=== PATIENT | female | born 2000 | race Hispanic/Latino ===

== ENCOUNTER 2024-10-02 18:42 | Emergency (ER) | payer BC, MEDICAID ==
[~2024-10-02] VITALS: Ht 157.5 cm; Wt 113.5 kg
[2024-10-02 18:52] VITALS: BP 117/86; PULSE 74; RESP 16; TEMP 98.2; O2SAT 99
--- NOTE | 2024-10-02 20:46 | NUR ---
PT STATES SHE IS POSITIVE SHE IS NOT
--- NOTE | 2024-10-02 20:46 | NUR ---
PT STATES SHE IS NOT
--- NOTE | 2024-10-02 21:25 | HMCIMG ---
RIGHT ANKLE RADIOGRAPHS - 3 VIEWS INDICATION: Pain COMPARISON: None FINDINGS: AP, lateral, and oblique views. Examination provided for interpretation at 9:21 PM on 10/02/2024. No acute fracture or subluxation identified. Moderate dorsal lateral right ankle soft tissue swelling. The talar dome is intact. Ankle mortise and tibial plafond are well maintained. No significant joint effusion is present. 7 mm spur arising posteriorly off the posterior talar margin on the lateral view is of no clinical significance. IMPRESSION: Examination provided for interpretation at 9:21 PM on 10/02/2024. Moderate dorsal lateral right ankle soft tissue swelling without evidence for fracture or dislocation.
--- NOTE | 2024-10-02 21:34 | ERN ---
General Chief Complaint: Lower Extremity Pain/Injury Stated Complaint: RIGHT ANKLE INJURY Time Seen by MD: 21:11 History of Present Illness Initial Comments Patient with right lateral malleolar swelling after a right ankle injury. Unable to walk on it. There is no ecchymosis. Distal circulation intact. Allergies: Coded Allergies: No Known Drug Allergies (Unverified Allergy, Unknown, 10/02/24) Past Medical History Past Medical History: No Pertinent History Past Surgical History: Female( History) LMP: October 02, 2024 : 3 Para: 3 Aborts: 0 ROS Dictation Review of systems otherwise negative Physical Exam General Appearance: (+) mild distress Orientation: (+) oriented x 3 Head/Face Trauma: No Extremities Comment Right lateral malleolar and dorsal swelling of the foot no ecchymosis no bleeding. Distal neurovascular intact. Pain is extremely high with palpation in even just flexing and extending ankle. MDM Plain films show no acute fractures. Patient has some kind of a ligamentous injury. We will put her in a splint or a walking boot she can follow-up with [facility] for MRI if she does not improve. ED Course Orders Procedure Category Date Status Time Ankle Comp 3vws Rt RAD 10/02/24 Resulted 20:32 Vital Signs Date Time Temp Pulse Resp B/P (MAP) Pulse Ox O2 Delivery O2 Flow Rate FiO2 10/02/24 18:52 98.2 74 16 117/86 99 Room Air* 0 21 10/02/24 18:44 98.2 74 16 117/86 99 Room Air 0 DX & DISP Disposition: Discharge Departure Impression: Primary Impression: Right ankle injury Condition: Stable Additional Instructions: You have a soft tissue injury to your right ankle. There are no broken bones. It is either a ligament or a tendon tear. Treat the foot with elevation ice mild compression if you want. Best therapy for pain is Motrin. Please follow- up with a an orthopedic surgeon to see if an MRI is needed, especially if the swelling and pain does not improve in the next week or so. Referrals: SELF,REFERRAL (PCP) STEFANI REIS MD, GORDON K MD October 02, 2024 21:34
--- NOTE | 2024-10-02 21:47 | NUR ---
WALKING BOOT TO RT ANKLE AND CRUTCHES FOR PT, TOLERATED WELL BY PT
== END 2024-10-02 22:05 | disposition home or self-care (01) ==
LOC: EDH 18:42
DX: S99.911A Unspecified injury of right ankle, initial encounter (principal); Z98.890 Other specified postprocedural states; X58.XXXA Exposure to other specified factors, initial encounter; Y93.89 Activity, other specified; Y92.89 Other specified places as the place of occurrence of the external cause; Y99.8 Other external cause status
CPT/HCPCS: 29515; 73610; 99283